=== PATIENT | male | born 1955 | race Caucasian/White ===

== ENCOUNTER 2019-11-14 08:54 | Emergency (ER) | payer MEDICARE, SELFPAY | END 2019-11-14 11:27 | disposition home or self-care (01) | PROVIDERS: Family Provider Nurse Practitioner Family | DX: S00.81XA Abrasion of other part of head, initial encounter (principal); S00.31XA Abrasion of nose, initial encounter; S60.511A Abrasion of right hand, initial encounter; W18.09XA Striking against other object with subsequent fall, initial encounter; Y92.009 Unspecified place in unspecified non-institutional (private) residence as the place of occurrence of the external cause; I25.2 Old myocardial infarction; I10 Essential (primary) hypertension; F17.210 Nicotine dependence, cigarettes, uncomplicated; Z99.81 Dependence on supplemental oxygen; Z23 Encounter for immunization ==

== ENCOUNTER 2019-11-19 15:38 | Inpatient (IN) | payer MEDICARE, SELFPAY ==
[2019-11-19] VITALS (18 sets, daily range): BP systolic 81–174; BP diastolic 57–118; PULSE 66–96; RESP 15–33; TEMP 36.5–36.9; O2SAT 95–100; BMI 20.6
--- NOTE | 2019-11-19 15:53 | ECG_ITS ---
Measurements Intervals [place] Rate: 81 P: 60 MD: 137 QRS: 103 QRSD: 101 T: 7 QT: 311 QTc: 362 SINUS RHYTHM WITH OCCASIONAL SUPRAVENTRICULAR PREMATURE COMPLEXES INDETERMINATE AXIS INFERIOR MYOCARDIAL INFARCTION , PROBABLY OLD [40+ ms Q WAVE AND/OR ST/T ABNORMALITY IN II/aVF] Compared to ECG 08/26/2016 14:40:47 Sinus tachycardia no longer present Myocardial infarct finding still present Electronically Signed On 11-20-2019 5:56:44 [employer] by Cassy Benavidez M.D. [email or web address]
--- NOTE | 2019-11-19 15:53 | XRR_ITS ---
PROCEDURE INFORMATION: Exam: XR Chest, 1 View Exam date and time: 11/19/2019 3:55 PM Age: 64 years old Clinical indication: Other: Possible sepsis; Patient HX: Smoker, HTN TECHNIQUE: Imaging protocol: XR of the chest Views: 1 view. COMPARISON: CR Chest 1 [place] [id number] 10/20/2019 5:16 AM FINDINGS: Tubes, catheters and devices: The right PICC line has been removed. Lungs: Slight decreased bilateral pulmonary opacities with residual perihilar pneumonia. Pleural space: Decreased pleural fluid collections with mild to moderate residual. Heart/Mediastinum: Unremarkable. No cardiomegaly. Bones/joints: Unremarkable. XR/XR chest 1V portable [id number] IMPRESSION: 1. The right PICC line has been removed. 2. Slight decreased bilateral pulmonary opacities with residual perihilar pneumonia. 3. Decreased pleural fluid collections with mild to moderate residual.
--- NOTE | 2019-11-19 15:58 | ED_ITS ---
Entered by Ami Parker, acting as scribe for Documented by User: Cedric Lynn MD 11/19/19 17:43 HPI - General Adult General: Chief complaint: General Medical, Adult Stated complaint: POSS SEPSIS Time Seen by Provider: 11/19/19 15:42 Source: patient and EMS Mode of arrival: EMS Limitations: no limitations History of Present Illness: HPI narrative: 64 yo male presents with low blood pressure. pt states this started 2 days ago. pt has had weakness. pt has had increased fatigue. pt has had abdomen pain. pt denies any other symptoms at this time. complaint: low blood pressure, weakness Onset (ago): day(s) (2 days ago) Radiation: abdomen Severity: moderate Pain Consistency: constant Relieving factors: none Exacerbating factors: none Associated symptoms: Reports weakness; Deny chest pain, dyspnea, headache(s), nausea, rash or vomiting Treatments prior to arrival: none Review of Systems Const: Denies: fever or chills Eyes: Denies: change in vision ENMT: Denies: throat pain or mouth pain Card: Denies: chest pain Resp: Reports: non-productive cough; Denies: shortness of breath GI: Denies: abdominal pain, nausea, vomiting or diarrhea Musc: Denies: back pain or joint pain Skin/Breast: Denies: rash Neuro: Denies: headache or behavioral changes Psych: Denies: depression Endo: Denies: excessive urination Jeffery/Lymph: Denies: easy bruising All/Imm: Denies: hives PFSH ED PFSH: Statuses (acute, chronic, etc) shown below reflect problem list status as previously entered and may not be historically accurate Medical History (Updated 11/19/19 @ 20:50 by Ministerio Jewell MD) ARDS (adult respiratory distress syndrome) (Acute) Chronic kidney disease, stage II (mild) (Acute) COPD (chronic obstructive pulmonary disease) (Acute) Deconditioned low back (Acute) Depression (Acute) Gastric perforation (Acute) History of coronary angiogram (Acute) Hypertension (Acute) Loculated pleural effusion (Acute) Malnourished (Acute) Myocardial infarction (Acute) Normocytic anemia (Acute) Peptic ulcer disease (Acute) Ventral hernia (Acute) Surgical History (Updated 11/19/19 @ 20:09 by Ministerio Jewell MD) H/O chest tube placement (Acute) S/P right coronary artery (RCA) stent placement (Acute) Family History (Updated 11/19/19 @ 20:07 by Ministerio Jewell MD) Father Liver cirrhosis Social History (Updated 11/19/19 @ 20:07 by Ministerio Jewell MD) Smoking and tobacco status: current some day smoker cigarettes Number of cigarettes per day: 1-5 Alcohol intake: never Substance/Drug Use: never Lives independently: No Housing: Assisted Living Facility Physical Exam Const: COMMON NORMALS: no apparent distress GENERAL APPEARANCE: ill appearing HENMT: COMMON NORMALS: normocephalic and external nose normal HEAD & SCALP: normocephalic NOSE: external nose normal and no nasal discharge (nasal dischage) Eye: COMMON NORMALS: PERRL PUPIL: Yes PERRL Neck/C-Spine: COMMON NORMALS: full ROM and no lymphadenopathy Chest: COMMONS NORMALS: inspection of chest normal Resp: COMMON NORMALS: normal respiratory effort and clear to auscultation bilaterally AUSCULTATION: clear to auscultation bilaterally Cardio: COMMON NORMALS: regular rate and regular rhythm RATE: regular rate RHYTHM: regular rhythm GI: COMMON NORMALS: soft to palpation PALPATION: Yes soft Extremity: COMMON NORMALS: normal to inspection, full ROM and normal capillary refill Psych: COMMON NORMALS: mental status grossly normal and cooperative Skin: COMMON NORMALS: no rashes or lesions noted GENERAL SKIN EXAM: no rashes or lesions noted Course Vital Signs: Vital signs: Vital Signs Temperature 98.4 F 11/19/19 15:43 Pulse Rate 79 11/19/19 20:54 Respiratory Rate 16 11/19/19 21:21 Blood Pressure 96/68 11/19/19 20:54 Pulse Oximetry 100 11/19/19 20:54 MDM - General Adult MDM Narrative: Medical decision making narrative: Patient presents here with hypotension along with abdominal pain. X-ray here shows no real acute findings but will wait for radiology read. Patient also is awaiting CT abdomen and pelvis. Patient's blood pressure is improving with IV fluids. Patient's care turned over to Dr. Bob at shift change. Lab Data: Labs: Lab Results 11/19/19 11/19/19 11/19/19 Range/Units 16:31 16:31 16:31 WBC 14.1 H (4.0-10.0) 10^3/ uL RBC 3.47 L (4.1-5.3) 10^6/u L Hgb 9.0 L (11.7-16.6) g/dL Hct 28.9 L (42.0-52.0) % MCV 83.3 (80-94) fL MCH 25.9 L (28.0-34.0) pg MCHC 31.1 (30.0-36.0) g/dL RDW 17.5 H (12.1-15.1) % Plt Count 500 H (130-400) 10^3/c mm MPV 8.9 (7.4-10.4) fL Neut % (Auto) 66.9 % Lymph % (Auto) 23.9 % Elliott % (Auto) 8.6 % Eos % (Auto) 0.1 % Baso % (Auto) 0.2 % Neut # (Auto) 9.4 H (1.8-7.7) 10^3/u L Lymph # (Auto) 3.4 (0.8-4.8) 10^3/u L Elliott # (Auto) 1.2 H (0.2-0.9) 10^3/u L Eos # (Auto) 0.0 (0.0-0.8) 10^3/u L Baso # (Auto) 0.0 (0.0-0.1) 10^3/u L Nucleated RBC % (a uto) 0 % Nucleated RBCs # 0.0 /100WBC Sodium 129 L (136-145) mmol/L Potassium 3.2 L (3.5-5.1) mmol/L Chloride 88 L (98-107) mmol/L Carbon Dioxide 29 (22-29) mmol/L Anion Gap 15.2 (5-19) BUN 12 (8-23) mg/dL Creatinine 0.9 (0.7-1.2) mg/dL GFR Calculation 85.0 L (90-130) mL/min Glucose 98 (74-106) mg/dL Lactic Acid 2.3 H (0.5-2.2) mmol/L Lactate (0.5-2.2) mmol/L Calcium 8.4 L (8.8-10.2) mg/Dl Total Bilirubin 0.3 (0.15-1.2) mg/dL AST 22 (0-40) U/L ALT 19 (0-41) U/L Alkaline Phosphata se 144 H (40-130) IU/L Total Protein 7.4 (6.6-8.7) g/dL Albumin 2.1 L (3.5-5.2) g/dL Globulin 5.3 H (1.3-4.6) g/dL Urine Color (Yellow) Urine Appearance (CLEAR) Urine pH (5-7) Ur Specific Gravit y (1.005-1.030) Urine Protein (Negative) Urine Glucose (UA) (Normal) Urine Ketones (Negative) Urine Occult Blood (Negative) Urine Nitrate (Negative) Urine Bilirubin (NEGATIVE) Urine Urobilinogen (Negative) mg/dL Ur Leukocyte Cassi ase (Negative) 11/19/19 11/19/19 Range/Units 17:45 19:24 WBC (4.0-10.0) 10^3/ uL RBC (4.1-5.3) 10^6/u L Hgb (11.7-16.6) g/dL Hct (42.0-52.0) % MCV (80-94) fL MCH (28.0-34.0) pg MCHC (30.0-36.0) g/dL RDW (12.1-15.1) % Plt Count (130-400) 10^3/c mm MPV (7.4-10.4) fL Neut % (Auto) % Lymph % (Auto) % Elliott % (Auto) % Eos % (Auto) % Baso % (Auto) % Neut # (Auto) (1.8-7.7) 10^3/u L Lymph # (Auto) (0.8-4.8) 10^3/u L Elliott # (Auto) (0.2-0.9) 10^3/u L Eos # (Auto) (0.0-0.8) 10^3/u L Baso # (Auto) (0.0-0.1) 10^3/u L Nucleated RBC % (a uto) % Nucleated RBCs # /100WBC Sodium (136-145) mmol/L Potassium (3.5-5.1) mmol/L Chloride (98-107) mmol/L Carbon Dioxide (22-29) mmol/L Anion Gap (5-19) BUN (8-23) mg/dL Creatinine (0.7-1.2) mg/dL GFR Calculation (90-130) mL/min Glucose (74-106) mg/dL Lactic Acid (0.5-2.2) mmol/L Lactate 1.5 (0.5-2.2) mmol/L Calcium (8.8-10.2) mg/Dl Total Bilirubin (0.15-1.2) mg/dL AST (0-40) U/L ALT (0-41) U/L Alkaline Phosphata se (40-130) IU/L Total Protein (6.6-8.7) g/dL Albumin (3.5-5.2) g/dL Globulin (1.3-4.6) g/dL Urine Color Yellow (Yellow) Urine Appearance Clear (CLEAR) Urine pH 6.5 (5-7) Ur Specific Gravit y 1.005 (1.005-1.030) Urine Protein Neg (Negative) Urine Glucose (UA) Norm (Normal) Urine Ketones Negative (Negative) Urine Occult Blood Neg (Negative) Urine Nitrate Negative (Negative) Urine Bilirubin Neg (NEGATIVE) Urine Urobilinogen Norm (Negative) mg/dL Ur Leukocyte Cassi ase Negative (Negative) EKG Data^: EKG 1: Attestation: I personally reviewed and interpreted this EKG as follows: EKG interpretation date: 11/19/19 EKG interpretation time: 16:05 Interpretation: Normal sinus rhythm heart rate [address] or T wave abnormalities QRS 101 QTc 348 Computer generated interpretation: Chest X-Ray 11/19/19 15:53 IMPRESSION: 1. The right PICC line has been removed. 2. Slight decreased bilateral pulmonary opacities with residual perihilar pneumonia. 3. Decreased pleural fluid collections with mild to moderate residual. Abdomen/Pelvis CT 11/19/19 17:36 IMPRESSION: 1. Continued unusual pattern of prominent bilateral perihilar air bronchograms with dense consolidation suggesting possible chronic pneumonia versus fibrosis with crowded air bronchograms. 2. Decreased peripheral loculated bilateral pleural fluid collections. 3. Lobulated bowel wall thickening in the gastric body and fundus suggesting possible neoplasm versus hypertrophic gastritis. 4. Prominent right anterior abdominal wall hernia containing non incarcerated loops of bowel. Previously the the hernia was larger and midline. Probable interval surgical repair with recurrence/residual right-sided herniation. Radiation Dose CTDIVOL = (mGy): DLP = 755.29 (mGy-cm) Discharge Plan Discharge Patient Disposition: Admitted As Inpatient Admit Provider: Ministerio Jewell Condition: Stable Referrals: Martin Navarro, IMPORT/EXPORT ADMINISTRATOR [Family Provider] - Coding Level of Care Code ED Addiction Professional for Chg Fwd Exam Problem Focused Documented by User: Magnus Bob DO 11/19/19 21:54 HPI - General Adult General: Chief complaint: General Medical, Adult Stated complaint: POSS SEPSIS Time Seen by Provider: 11/19/19 15:42 PFSH ED PFSH: Statuses (acute, chronic, etc) shown below reflect problem list status as previously entered and may not be historically accurate Medical History (Updated 11/19/19 @ 20:50 by Ministerio Jewell MD) ARDS (adult respiratory distress syndrome) (Acute) Chronic kidney disease, stage II (mild) (Acute) COPD (chronic obstructive pulmonary disease) (Acute) Deconditioned low back (Acute) Depression (Acute) Gastric perforation (Acute) History of coronary angiogram (Acute) Hypertension (Acute) Loculated pleural effusion (Acute) Malnourished (Acute) Myocardial infarction (Acute) Normocytic anemia (Acute) Peptic ulcer disease (Acute) Ventral hernia (Acute) Surgical History (Updated 11/19/19 @ 20:09 by Ministerio Jewell MD) H/O chest tube placement (Acute) S/P right coronary artery (RCA) stent placement (Acute) Family History (Updated 11/19/19 @ 20:07 by Ministerio Jewell MD) Father Liver cirrhosis Social History (Updated 11/19/19 @ 20:07 by Ministerio Jewell MD) Smoking and tobacco status: current some day smoker cigarettes Number of cigarettes per day: 1-5 Alcohol intake: never Substance/Drug Use: never Lives independently: No Housing: Assisted Living Facility Course Vital Signs: Vital signs: Vital Signs Temperature 98.4 F 11/19/19 15:43 Pulse Rate 79 11/19/19 20:54 Respiratory Rate 16 11/19/19 21:21 Blood Pressure 96/68 11/19/19 20:54 Pulse Oximetry 100 11/19/19 20:54 MDM - General Adult MDM Narrative: Medical decision making narrative: 64-year-old male patient received in checkout from Dr. Lynn. He presents with hypotension. He complains of belly pain, which is chronic. His chest x-ray shows bilateral infiltrates that are chronic. [facility] stay here in October for pneumonia with parapneumonic effusion. His blood pressure is currently 100/66. He looks improved after fluid bolus. His white blood cell count is elevated. His hemoglobin is 9. There is no left shift to his white count. CT scan of the belly is performed and shows gastric wall thickening versus neoplasm that has been present on prior exams. Interval hernia repair with repeat hernia without strangulation or obstruction. It is difficult to tell with this patient, what are chronic conditions, and what may be more acute requiring intervention in the hospital. Lab Data: Labs: Lab Results 11/19/19 11/19/19 11/19/19 Range/Units 16:31 16:31 16:31 WBC 14.1 H (4.0-10.0) 10^3/ uL RBC 3.47 L (4.1-5.3) 10^6/u L Hgb 9.0 L (11.7-16.6) g/dL Hct 28.9 L (42.0-52.0) % MCV 83.3 (80-94) fL MCH 25.9 L (28.0-34.0) pg MCHC 31.1 (30.0-36.0) g/dL RDW 17.5 H (12.1-15.1) % Plt Count 500 H (130-400) 10^3/c mm MPV 8.9 (7.4-10.4) fL Neut % (Auto) 66.9 % Lymph % (Auto) 23.9 % Elliott % (Auto) 8.6 % Eos % (Auto) 0.1 % Baso % (Auto) 0.2 % Neut # (Auto) 9.4 H (1.8-7.7) 10^3/u L Lymph # (Auto) 3.4 (0.8-4.8) 10^3/u L Elliott # (Auto) 1.2 H (0.2-0.9) 10^3/u L Eos # (Auto) 0.0 (0.0-0.8) 10^3/u L Baso # (Auto) 0.0 (0.0-0.1) 10^3/u L Nucleated RBC % (a uto) 0 % Nucleated RBCs # 0.0 /100WBC Sodium 129 L (136-145) mmol/L Potassium 3.2 L (3.5-5.1) mmol/L Chloride 88 L (98-107) mmol/L Carbon Dioxide 29 (22-29) mmol/L Anion Gap 15.2 (5-19) BUN 12 (8-23) mg/dL Creatinine 0.9 (0.7-1.2) mg/dL GFR Calculation 85.0 L (90-130) mL/min Glucose 98 (74-106) mg/dL Lactic Acid 2.3 H (0.5-2.2) mmol/L Lactate (0.5-2.2) mmol/L Calcium 8.4 L (8.8-10.2) mg/Dl Total Bilirubin 0.3 (0.15-1.2) mg/dL AST 22 (0-40) U/L ALT 19 (0-41) U/L Alkaline Phosphata se 144 H (40-130) IU/L Total Protein 7.4 (6.6-8.7) g/dL Albumin 2.1 L (3.5-5.2) g/dL Globulin 5.3 H (1.3-4.6) g/dL Urine Color (Yellow) Urine Appearance (CLEAR) Urine pH (5-7) Ur Specific Gravit y (1.005-1.030) Urine Protein (Negative) Urine Glucose (UA) (Normal) Urine Ketones (Negative) Urine Occult Blood (Negative) Urine Nitrate (Negative) Urine Bilirubin (NEGATIVE) Urine Urobilinogen (Negative) mg/dL Ur Leukocyte Cassi ase (Negative) 01/05/20 01/05/20 Range/Units 17:45 19:24 WBC (4.0-10.0) 10^3/ uL RBC (4.1-5.3) 10^6/u L Hgb (11.7-16.6) g/dL Hct (42.0-52.0) % MCV (80-94) fL MCH (28.0-34.0) pg MCHC (30.0-36.0) g/dL RDW (12.1-15.1) % Plt Count (130-400) 10^3/c mm MPV (7.4-10.4) fL Neut % (Auto) % Lymph % (Auto) % Elliott % (Auto) % Eos % (Auto) % Baso % (Auto) % Neut # (Auto) (1.8-7.7) 10^3/u L Lymph # (Auto) (0.8-4.8) 10^3/u L Elliott # (Auto) (0.2-0.9) 10^3/u L Eos # (Auto) (0.0-0.8) 10^3/u L Baso # (Auto) (0.0-0.1) 10^3/u L Nucleated RBC % (a uto) % Nucleated RBCs # /100WBC Sodium (136-145) mmol/L Potassium (3.5-5.1) mmol/L Chloride (98-107) mmol/L Carbon Dioxide (22-29) mmol/L Anion Gap (5-19) BUN (8-23) mg/dL Creatinine (0.7-1.2) mg/dL GFR Calculation (90-130) mL/min Glucose (74-106) mg/dL Lactic Acid (0.5-2.2) mmol/L Lactate 1.5 (0.5-2.2) mmol/L Calcium (8.8-10.2) mg/Dl Total Bilirubin (0.15-1.2) mg/dL AST (0-40) U/L ALT (0-41) U/L Alkaline Phosphata se (40-130) IU/L Total Protein (6.6-8.7) g/dL Albumin (3.5-5.2) g/dL Globulin (1.3-4.6) g/dL Urine Color Yellow (Yellow) Urine Appearance Clear (CLEAR) Urine pH 6.5 (5-7) Ur Specific Gravit y 1.005 (1.005-1.030) Urine Protein Neg (Negative) Urine Glucose (UA) Norm (Normal) Urine Ketones Negative (Negative) Urine Occult Blood Neg (Negative) Urine Nitrate Negative (Negative) Urine Bilirubin Neg (NEGATIVE) Urine Urobilinogen Norm (Negative) mg/dL Ur Leukocyte Cassi ase Negative (Negative) EKG Data^: EKG 1: Computer generated interpretation: Chest X-Ray 11/19/19 15:53 IMPRESSION: 1. The right PICC line has been removed. 2. Slight decreased bilateral pulmonary opacities with residual perihilar pneumonia. 3. Decreased pleural fluid collections with mild to moderate residual. Abdomen/Pelvis CT 11/19/19 17:36 IMPRESSION: 1. Continued unusual pattern of prominent bilateral perihilar air bronchograms with dense consolidation suggesting possible chronic pneumonia versus fibrosis with crowded air bronchograms. 2. Decreased peripheral loculated bilateral pleural fluid collections. 3. Lobulated bowel wall thickening in the gastric body and fundus suggesting possible neoplasm versus hypertrophic gastritis. 4. Prominent right anterior abdominal wall hernia containing non incarcerated loops of bowel. Previously the the hernia was larger and midline. Probable interval surgical repair with recurrence/residual right-sided herniation. Radiation Dose CTDIVOL = (mGy): DLP = 755.29 (mGy-cm) Discharge Plan Discharge Patient Disposition: Admitted As Inpatient Admit Provider: Ministerio Jewell Condition: Stable Referrals: Martin Navarro FNP [Family Provider] - Coding Level of Care Code ED Addiction Professional for Chg Fwd Exam Problem Focused The documentation recorded by the Keith lopez Bridget Annette, accurately reflects the service I personally performed and the decisions made by Leah lopez Korby, MD Nov 19, 2019 15:38
--- NOTE | 2019-11-19 16:04 | PC.NURSE ---
pt asked for pain meds
--- NOTE | 2019-11-19 16:24 | PC.NURSE ---
Skin: [place],Warm,Dry
[2019-11-19 16:48] LABS: Basophils % 0.2 %; Eosinophils % 0.1 %; Hematocrit 28.9 % (42.0-52.0); Lymphocytes # 3.4 10^3/uL (0.8-4.8); Lymphocytes % 23.9 %; Mean Corpuscular HGB Conc 31.1 g/dL (30.0-36.0); Mean Corpuscular Hemoglobin 25.9 pg (28.0-34.0); Mean Corpuscular Volume 83.3 fL (80-94); Mean Platelet Volume 8.9 fL (7.4-10.4); Monocytes # 1.2 10^3/uL (0.2-0.9); Monocytes % 8.6 %; Neutrophils # 9.4 10^3/uL (1.8-7.7); Neutrophils % 66.9 %; Nucleated Red Blood Cells % 0 %; Platelet Count 500 10^3/cmm (130-400); Red Blood Count 3.47 10^6/uL (4.1-5.3); Red Cell Distribution Width 17.5 % (12.1-15.1); White Blood Count 14.1 10^3/uL (4.0-10.0)
[2019-11-19 17:03] LABS: Alanine Aminotransferase 19 U/L (0-41); Albumin Level 2.1 g/dL (3.5-5.2); Alkaline Phosphatase 144 IU/L (40-130); Anion Gap 15.2 (5-19); Aspartate Amino Transferase 22 U/L (0-40); Blood Urea Nitrogen 12 mg/dL (8-23); Calcium 8.4 mg/Dl (8.8-10.2); Carbon Dioxide 29 mmol/L (22-29); Chloride 88 mmol/L (98-107); Globulin 5.3 g/dL (1.3-4.6); Glucose 98 mg/dL (74-106); Potassium 3.2 mmol/L (3.5-5.1); Sodium 129 mmol/L (136-145); Total Bilirubin 0.3 mg/dL (0.15-1.2); Total Protein 7.4 g/dL (6.6-8.7)
[2019-11-19 17:04] LABS: Lactic Sepsis W/Reflex 2.3 mmol/L (0.5-2.2)
[2019-11-19 17:18] LABS: Slide Review Slide Review Perform
--- NOTE | 2019-11-19 17:36 | CTR_ITS ---
PROCEDURE INFORMATION: Exam: CT Abdomen And Pelvis With Contrast Exam date and time: 11/19/2019 5:39 PM Age: 64 years old Clinical indication: Abdominal pain; Generalized; Prior surgery; Surgery type: Hernia TECHNIQUE: Imaging protocol: Computed tomography of the abdomen and pelvis with intravenous contrast. Total DLP: 755.29 mGy-cm Radiation optimization: All CT scans at this facility use at least one of these dose optimization techniques: automated exposure control; mA and/or kV adjustment per patient size (includes targeted exams where dose is matched to clinical indication); or iterative reconstruction. Contrast material: OMNI 300; Contrast volume: 95 ml; Contrast route: LT HAND; COMPARISON: CT Abdomen/Pelvis w IV* [id number] 09/30/2019 10:34 AM FINDINGS: Lungs: Continued unusual pattern of prominent bilateral perihilar air bronchograms with dense consolidation suggesting possible chronic pneumonia versus fibrosis with crowded air bronchograms. Pleural space: Decreased loculated bilateral pleural fluid collections. Heart: Borderline cardiomegaly. Liver: Normal. No mass. Gallbladder and bile ducts: Normal. No calcified stones. No ductal dilation. Pancreas: Normal. No ductal dilation. Spleen: Normal. No splenomegaly. Adrenals: Normal. No mass. Kidneys and ureters: Normal. No hydronephrosis. Stomach and bowel: Lobulated bowel wall thickening in the gastric body and fundus suggesting possible neoplasm versus hypertrophic gastritis. Prominent right anterior abdominal wall hernia containing non incarcerated loops of bowel. Previously the the hernia was larger and midline. Probable interval surgical repair with recurrence/residual right-sided herniation. Appendix: No evidence of appendicitis. Intraperitoneal space: Unremarkable. No free air. No significant fluid collection. Vasculature: Stable severe calcified coronary artery disease. Lymph nodes: Unremarkable. No enlarged lymph nodes. Bladder: Unremarkable as visualized. Reproductive: Unremarkable as visualized. Bones/joints: Unremarkable. No acute fracture. Soft tissues: See Stomach And Bowel Finding. CT/CT abdomen pelvis w con* [id number] IMPRESSION: 1. Continued unusual pattern of prominent bilateral perihilar air bronchograms with dense consolidation suggesting possible chronic pneumonia versus fibrosis with crowded air bronchograms. 2. Decreased peripheral loculated bilateral pleural fluid collections. 3. Lobulated bowel wall thickening in the gastric body and fundus suggesting possible neoplasm versus hypertrophic gastritis. 4. Prominent right anterior abdominal wall hernia containing non incarcerated loops of bowel. Previously the the hernia was larger and midline. Probable interval surgical repair with recurrence/residual right-sided herniation. Radiation Dose CTDIVOL = (mGy): DLP = 755.29 (mGy-cm)
[2019-11-19] MEDS: morphine 4 mg/mL SDV 1 mL 2 MG IVP (18:03)
[2019-11-19] MEDS: iohexol 300 mg/mL 100 mL Btl IV (18:12)
--- NOTE | 2019-11-19 18:21 | PC.NURSE ---
AGREE WITH ASSESSMENT
[2019-11-19 18:23] LABS: Reflex Lactate Order Y
[2019-11-19 18:26] LABS: Add Urine Microscopic? NO
[2019-11-19 18:31] LABS: Add Urine Culture? No; Bilirubin Urine Neg (NEGATIVE); Blood Urine Neg (Negative); Glucose Urine UA Norm (Normal); Ketones Urine Negative (Negative); Leukocyte Esterase Urine Negative (Negative); Nitrate Urine Negative (Negative); Protein Urine Neg (Negative); Specific Gravity, Urine 1.005 (1.005-1.030); Urine Appearance Clear (CLEAR); Urine Color Yellow (Yellow); Urobilinogen Urine Norm (Negative); pH Urine 6.5 (5-7)
[2019-11-19] MEDS: sodium chlor 0.9% + KCl 20 mEq 20 MEQ/1,000 ML BAG 200 MEQ (19:23)
[2019-11-19 19:45] LABS: Lactate (Lactic Acid level) 1.5 mmol/L (0.5-2.2)
--- NOTE | 2019-11-19 20:02 | PM.HP ---
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 Gastric biopsy showed fungal growth at that time. After that he developed ARDS with bilateral pneumonia he was never intubated, he was managed with antibiotics, Dr. Alba was consulted for ARDS management as well, he developed wound dehiscence underwent hernia repair with mesh placement, on 10/17 he underwent chest tube placement for loculated effusion with drainage of 700 mL of exudative fluid. Chest tube was inadvertently dislodged. He was transferred to [facility] long-term acute care for management of hypoxic respiratory failure, suspected hematological neoplastic process i.e. B-cell lymphoma. From long-term acute care he was discharged back to [facility]. At [facility] he started experiencing lethargy, fatigue and weakness, his blood pressure was consistently between 80 to 85 mmHg at the facility, he denies any fever, chills, headache, chest pain, constipation but he is endorsing relatively darker stool but he has not noticed any fresh red blood per rectum, is able to void without any dysuria, he is having nonproductive cough on and off, he ambulates using a walker at the facility, because of his chronic conditions and complicated course in the hospital he was sent to the ER for further evaluation. In the ER systolic blood pressure was at 80, he was given fluids by ER physician, his systolic blood pressure was 95 when I examined him, he looked very dehydrated, with hyponatremia, hypokalemia, met sepsis criteria with leukocytosis 14, lactic acid 2.2, hypotension, CT abdomen is still showing gastric wall thickening, mild improvement in bilateral infiltrates but because of consistent hypotension despite use of fluids we will go ahead and treat him for hospital-acquired pneumonia Review of Systems Const: Reports: body aches, change in appetite, change in weight, fatigue and malaise; Denies: fever, chills or diaphoresis Eyes: Denies: change in vision ENMT: Denies: throat pain, painful swallowing or swelling of lips/tongue Card: Denies: chest pain, palpitations or edema Resp: Reports: non-productive cough and chest congestion; Denies: shortness of breath, wheezing, pain on inspiration or coughing up blood GI: Reports: abdominal pain, nausea and bloating; Denies: vomiting, vomiting blood, coffee grounds in vomit, difficulty swallowing, feeling full early, constipation or fecal incontinence : Denies: flank pain, difficulty urinating or urinary frequency Musc: Reports: joint pain and muscle cramps; Denies: neck pain or back pain Neuro: Denies: headache or dizziness Psych: Reports: depression and memory loss Endo: Denies: excessive urination or excessive thirst Jeffery/Lymph: Reports: enlarged lymph nodes All/Imm: Denies: hives Medications/Allergies Home Medications Medication Instructions Recorded Confirmed Last Taken Type Unable to Assess 11/19/19 11/19/19 Unknown History Allergies Allergy/AdvReac Type Severity Reaction Status Date / Time propoxyphene Allergy Unknown Verified 11/19/19 15:48 PFSH Acute PFSH: Statuses (acute, chronic, etc) shown below reflect problem list status as previously entered and may not be historically accurate Medical History (Updated 11/19/19 @ 20:50 by Ministerio Jewell MD) ARDS (adult respiratory distress syndrome) (Acute) Chronic kidney disease, stage II (mild) (Acute) COPD (chronic obstructive pulmonary disease) (Acute) Deconditioned low back (Acute) Depression (Acute) Gastric perforation (Acute) History of coronary angiogram (Acute) Hypertension (Acute) Loculated pleural effusion (Acute) Malnourished (Acute) Myocardial infarction (Acute) Normocytic anemia (Acute) Peptic ulcer disease (Acute) Ventral hernia (Acute) Surgical History (Updated 11/19/19 @ 20:09 by Ministerio Jewell MD) H/O chest tube placement (Acute) S/P right coronary artery (RCA) stent placement (Acute) Family History (Updated 11/19/19 @ 20:07 by Ministerio Jewell MD) Father Liver cirrhosis Social History (Updated 11/19/19 @ 20:07 by Ministerio Jewell MD) Smoking and tobacco status: current some day smoker cigarettes Number of cigarettes per day: 1-5 Alcohol intake: never Substance/Drug Use: never Lives independently: No Housing: Assisted Living Facility Vitals/I&O/Wt Last Vital Signs Temp 98.4 F 11/19/19 15:43 Pulse 77 11/19/19 19:00 Resp 16 11/19/19 19:00 BP 104/65 11/19/19 19:00 Pulse Ox 100 11/19/19 19:00 Weight last 48 hrs Weight 67.132 kg Physical Exam Narrative: EXAM NARRATIVE: Appears stated age, Seems to be very dehydrated and cachectic He was alert oriented x3, GCS 15, no local deficit, neuroLogical exam was unremarkable Systolic blood pressure was 111, heart rate 70, saturating well on 2 L S1-S2 no murmur appreciated no signs of JVD or heart failure no peripheral edema Abdomen has mid laparotomy scar well-healed, mild tenderness on deep palpation, very weak abdominal wall muscles, bowel sounds sluggish, Lung auscultation shows mild rhonchi at the bases otherwise clear breath sounds without adventitious sounds or wheezing Skin shows dehydration, no bruising or petechiae Extremities without any signs of ischemia gangrene or edema Data Micro: Micro: Microbiology 11/19/19 16:22 Blood Culture - Pr eliminary Blood SPECIMEN [facility] 11/19/19 16:31 Blood Culture - Pr eliminary Blood SPECIMEN [facility] A&P Assessment and plan (1) Hospital-acquired pneumonia: Status: Acute Code(s): J18.9 - Pneumonia, unspecified organism; Y95 - Nosocomial condition (2) Septic shock: Status: Acute Code(s): A41.9 - Sepsis, unspecified organism; R65.21 - Severe sepsis with septic shock (3) Malnourished: Status: Acute Code(s): E46 - Unspecified protein-calorie malnutrition (4) Sepsis: Status: Acute Code(s): A41.9 - Sepsis, unspecified organism (5) Sarcopenia: Status: Acute Code(s): M62.84 - Sarcopenia Additional A&P Information Additional A&P Information: Septic shock secondary to hospital-acquired pneumonia Sepsis criteria met with leukocytosis, hypotension high lactic acid Patient seems extremely dehydrated, denies dysuria, CT scan is still showing bilateral infiltrates after 4 to 6 weeks of previous or ARDS event I will treat him with vancomycin, Zosyn and Levaquin for now Sputum and blood cultures Dehydration secondary to poor p.o. intake Patient has anorexia and because of his abdominal pain he is not eating well He is requiring oxycodone for his abdominal pain on daily basis Denies constipation Chronic normocytic anemia Last time his hemoglobin was 10, on this visit his hemoglobin is 9, he is endorsing dark-colored stool We will monitor his hemoglobin level Because of his history of VT and coronary artery disease target range would be around 8 Deconditioning and Sarcopenia with malnourishment Hyponatremic, hypokalemic and hypochloremic His clinical progression and recovery will be very slow because of his poor p.o. intake, loss of muscle mass and inadequate p.o. intake Chronic hyponatremia: Target sodium correction only 6 mEq in 24 hours, currently requiring fluids because of hypotension Will check sodium level in 4 hours On previous admission his sodium level fluctuated between 128-132 I believe this is secondary to his chronic dehydration, anticipating improvement with normal saline, His fatigue and lethargy is multifactorial because of the reasons mentioned above Thrombocytosis: He had provisional diagnosis of B-cell lymphoma after gastric biopsy, however this thrombocytosis could be secondary to iron deficiency anemia, active infection and dehydration Abdominal pain: Patient has gastric wall thickening and previously he had 2 biopsies done He requires opiates on daily basis, This pain is not new in intensity is 3/10 no active constipation He is able to tolerate diet DVT prophylaxis: Lovenox GI prophylaxis: Protonix Goals of care: Full code Attestations Medical Necessity Statement*: Anticipating stay to cross more than 2 midnights Time Spent in Patient Care: (>than 50% of time spent in counselling and/or direct pt care on unit). 50 Coding Level of Care Code Acute Ecmo Specialist for [facility] Fwd Diagnoses Hospital-acquired pneumonia J18.9; Y95 Septic shock A41.9; R65.21 Malnourished E46 Sepsis A41.9 Sarcopenia M62.84
--- NOTE | 2019-11-19 20:06 | PC.NURSE ---
Updated NH on status of patient. Spoke to Bill.
[2019-11-19] MEDS: levofloxacin-dextrose 5 % 750 MG/150 ML PREMIX 150 MG IV (20:23)
[2019-11-19] MEDS: sodium chlor 0.9% + KCl 20 mEq 20 MEQ/1,000 ML BAG 200 MEQ IV (20:29)
[2019-11-19] MEDS: morphine 4 mg/mL SDV 1 mL IVP (21:21)
[2019-11-20] VITALS (13 sets, daily range): BP systolic 93–118; BP diastolic 61–82; PULSE 63–85; RESP 18–32; TEMP 36.4–37.1; O2SAT 27–100
[2019-11-20] MEDS: piperacillin-tazobactam 3.375 GM in sodium chloride 0.9% (plus) 50 ML IV ×4 (00:30→23:30)
[2019-11-20] MEDS: sodium chlor 0.9% + KCl 20 mEq 20 MEQ/1,000 ML BAG 200 MEQ IV ×3 (00:31→11:27)
[2019-11-20] MEDS: enoxaparin 40 mg/0.4 mL Syringe SUBCUT ×2 (00:31→21:49)
[2019-11-20 01:08] LABS: Sodium 131 mmol/L (136-145)
[2019-11-20 05:39] LABS: Basophils % 0.4 %; Eosinophils # 0.1 10^3/uL (0.0-0.8); Eosinophils % 0.7 %; Hematocrit 28.5 % (42.0-52.0); Hemoglobin 8.8 g/dL (11.7-16.6); Lymphocytes # 1.8 10^3/uL (0.8-4.8); Lymphocytes % 17.2 %; Mean Corpuscular HGB Conc 30.9 g/dL (30.0-36.0); Mean Corpuscular Hemoglobin 25.8 pg (28.0-34.0); Mean Corpuscular Volume 83.6 fL (80-94); Mean Platelet Volume 9.3 fL (7.4-10.4); Monocytes # 0.7 10^3/uL (0.2-0.9); Monocytes % 6.9 %; Neutrophils # 7.6 10^3/uL (1.8-7.7); Neutrophils % 74.4 %; Nucleated Red Blood Cells % 0 %; Platelet Count 466 10^3/cmm (130-400); Red Blood Count 3.41 10^6/uL (4.1-5.3); Red Cell Distribution Width 17.4 % (12.1-15.1); White Blood Count 10.2 10^3/uL (4.0-10.0)
[2019-11-20 06:00] LABS: Anion Gap 11.4 (5-19); Blood Urea Nitrogen 9 mg/dL (8-23); Calcium 8.3 mg/Dl (8.8-10.2); Carbon Dioxide 29 mmol/L (22-29); Chloride 97 mmol/L (98-107); Glucose 83 mg/dL (74-106); Potassium 3.4 mmol/L (3.5-5.1); Sodium 134 mmol/L (136-145)
[2019-11-20 06:16] LABS: ABG PCO2 39.3 mmHg (35-45); ABG PH Result 7.48 (7.35-7.45); Arterial Blood Gas Hematocrit 25.3 % (42-52); Base Excess ABG 5.1 mmol/L (-2.0-2.0); Blood Gas Sample Site Brachial, right; Blood Gas Sample Type Arterial; HCO3 ABG 29.1 mmol/L (22-26); PO2 ABG 82.4 mmHg (80.0-100.0)
--- NOTE | 2019-11-20 07:00 | PC.NURSE ---
Report received from nurse Ayala. Patient resting in bed. SR noted to telemetry. Denies pain at present time.
[2019-11-20 07:18] LABS: Slide Review Slide Review Perform
[2019-11-20] MEDS: vancomycin 750 MG in sodium chloride 0.9% 250 ML 250 MG IV ×2 (09:10→21:49)
[2019-11-20] MEDS: risperiDONE 0.25 mg Tablet PO (09:11)
[2019-11-20] MEDS: pantoprazole DR 40 mg Tablet PO (09:11)
--- NOTE | 2019-11-20 11:31 | PM.PN ---
Subjective Subjective: Interval history: Chart reviewed, patient known to me from previous admission, morning labs noted. Patient seen and examined, flat affect, complains of feeling cold and requesting additional linen. Requesting pain medication as well due to some abdominal discomfort. Blood pressure has been low-normal for most of the day. Despite frequent encouragement by nursing staff has declined hydration with water and insisted on drinking Coke instead. Medications: Reviewed: Yes Medication Review Details: Active Medications Generic Name Dose Route Start Last Admin Trade Name Mark PRN Reason Stop Dose Admin Enoxaparin Sodium 40 mg 11/19/19 22:32 11/20/19 00:31 Lovenox SUBCUT 40 mg Q24H DAVID Administration Potassium Chloride /Sodium Chloride 20 meq in 1,000 m ls @ 200 mls/hr 11/19/19 19:30 11/20/19 11:27 Sodium Chlor 0.9 % + Kcl 20 Meq IV 200 mls/hr .Q5H DAVID Administration Vancomycin HCl 750 mg/ Sodium 250 mls @ 250 mls /hr 11/20/19 09:00 11/20/19 09:10 Chloride IV 250 mls/hr BID DAVID Administration Protocol Norepinephrine Bit artrate 4 mg 254 mls @ 0 mls/h r 11/20/19 05:45 / Dextrose IV .Q0M DAVID Protocol Per Protocol Piperacillin Sod/T azobactam 50 mls @ 12.5 mls /hr 11/20/19 15:00 Sod 3.375 gm/ So dium Chloride IV Q8H DAVID Protocol Levofloxacin/Dextr ose 750 mg in 150 mls @ 150 mls/hr 11/20/19 11:30 Levaquin-D5w IV Q24H DAVID Protocol Pantoprazole Sodiu m 40 mg 11/20/19 09:00 11/20/19 09:11 Protonix PO 40 mg DAILY DAVID Administration Risperidone 0.25 mg 11/20/19 09:00 11/20/19 09:11 Risperdal PO 0.25 mg DAILY DAVID Administration propoxyphene Allergy (Verified 11/19/19 15:48) Unknown Vitals/I&O/Wt Last Vital Signs Temp 97.6 F 11/20/19 07:59 Pulse 70 11/20/19 07:59 Resp 22 H 11/20/19 07:59 BP 93/65 11/20/19 07:59 Pulse Ox 100 11/20/19 07:59 11/19/19 11/20/19 11/20/19 22:59 06:59 14:59 Intake Total 3656.667 / 5670.627 1240 / 1240 Output Total 1300 / 1300 550 / 550 Balance 2356.667 / 4370.627 690 / 690 Weight last 48 hrs Weight 67.132 kg Physical Exam Const: COMMON NORMALS: no apparent distress, oriented x3 and alert GENERAL APPEARANCE: cooperative and frail appearing NUTRITIONAL APPEARANCE: thin ORIENTATION/CONSCIOUSNESS: Yes awake HENMT: COMMON NORMALS: normocephalic, head/scalp atraumatic and hearing grossly normal bilaterally HEAD & SCALP: normocephalic and atraumatic Eye: COMMON NORMALS: PERRL, EOMs intact bilaterally, conjunctivae normal and no scleral icterus CONJUNCTIVA: Yes conjunctivae normal PUPIL: Yes PERRL Resp: COMMON NORMALS: normal respiratory effort, no retractions, no use of accessory muscles and clear to auscultation bilaterally AUSCULTATION: clear to auscultation bilaterally Cardio: COMMON NORMALS: regular rate, regular rhythm, S1 normal heart sound, S2 normal heart sound and no murmurs RATE: regular rate RHYTHM: regular rhythm HEART SOUNDS: S1 normal and S2 normal OTHER: Low normal blood pressure GI: COMMON NORMALS: normal to inspection, nondistended, normoactive bowel sounds INSPECTION: Yes other (scar from recent ventral hernia repair) PALPATION: Yes tender (Vague diffuse abdominal tenderness) Extremity: COMMON NORMALS: normal to inspection Neuro: COMMON NORMALS: oriented x3 SENSORIUM/ORIENTATION: Yes alert Psych: MOOD & AFFECT: Yes flat affect Skin: COMMON NORMALS: no rashes or lesions noted GENERAL SKIN EXAM: no rashes or lesions noted Data Micro: Micro: Microbiology 11/19/19 16:22 Blood Culture - Pr eliminary Blood SPECIMEN [facility] 11/19/19 16:31 Blood Culture - Pr eliminary Blood SPECIMEN [facility] A&P Assessment and plan (1) Sepsis: Sepsis as evidenced by hypotension, leukocytosis, lactic acidosis -Suspected etiology is hospital-acquired pneumonia given continued evidence of bilateral pleural infiltrates; has history of loculated effusion that required chest tube placement and thoracentesis -Low normal blood pressure currently, pressor support as needed to maintain MAP above 65 -Decreasing leukocytosis; afebrile -Continue to monitor vital signs closely -Supplemental oxygen as needed, not oxygen dependent at baseline -Continue empiric antibiotics; de-escalate based on clinical improvement -Follow-up sputum and blood cultures Status: Acute Qualifiers: Sepsis acute organ dysfunction status: without acute organ dysfunction Sepsis type: sepsis due to unspecified organism Qualified Code(s): A41.9 - Sepsis, unspecified organism Code(s): A41.9 - Sepsis, unspecified organism (2) Hospital-acquired pneumonia: -Has history of recent prolonged and very complicated hospitalization including development of ARDS, loculated effusion requiring drainage and chest tube placement and removal, BiPAP support, ICU admission -Continued evidence of bilateral pleural infiltrates on imaging -Continue empiric antibiotics, close monitoring of respiratory status, supplemental oxygen as needed Status: Acute Code(s): J18.9 - Pneumonia, unspecified organism; Y95 - Nosocomial condition (3) Dehydration: -Appears quite dehydrated clinically, poor oral intake likely secondary to persistent abdominal pain -On gentle IV fluid hydration; encourage oral hydration which patient has been reluctant to do so far -[place] diet Status: Acute Code(s): E86.0 - Dehydration (4) Hyponatremia: -Has history of chronic hyponatremia with baseline sodium in the low 130s -Current sodium appears to be his baseline Status: Acute Code(s): E87.1 - Hypo-osmolality and hyponatremia (5) Gastric wall thickening: -Has known history of gastric wall thickening, seen on repeat imaging with radiologist reporting neoplasm versus hypertrophic gastritis -Had recent gastric biopsy done showing fungal overgrowth; suspicion for B-cell lymphoma -has known hx of PUD Status: Acute Code(s): K31.89 - Other diseases of stomach and duodenum Additional A&P Information Additional A&P Information: -Chronic normocytic anemia; baseline Hg 9-10 -Deconditioning and sarcopenia; had been at an LTAC in [place] and most recently has been at [facility]. Strict fall precautions; Assist with ambulation as needed -Chronic thrombocytosis; which is likely multifactorial given possibility of B-cell lymphoma, acute infection. Baseline platlet count 600s -Oxygen dependent COPD, 2 L baseline requirement -History of CAD status post RCA stenting -Chronic smoker -History of chronic combined systolic and diastolic CHF, no acute exacerbation. Echo (09/2019): EF=55%, G1DD, no RWMA, mild TR -hx of recent ventral hernia repair with mesh -Depression, anxiety -GI ppx with PPI -DVT ppx with Lovenox -Dispo: return to [facility] -Code status: FULL code Attestations Medical Necessity Statement*: Patient requires continued hospitalization for management of hospital-acquired pneumonia currently on broad-spectrum IV antibiotics, dehydration on gentle IV fluid hydration. Coding Level of Care Code Acute Records Associate for [facility] Fwd Diagnoses Sepsis A41.9 Sepsis acute organ dysfunction status: without acute organ dysfunction Sepsis type: sepsis due to unspecified organism Hospital-acquired pneumonia J18.9; Y95 Dehydration E86.0 Hyponatremia E87.1 Gastric wall thickening K31.89
--- NOTE | 2019-11-20 12:34 | PC.NURSE ---
Dr. Norris came to bedside to round. Instructions to decrease fluids to 100ml/hour.
[2019-11-20] MEDS: TRAMadol 50 mg Tablet PO (14:09)
--- NOTE | 2019-11-20 15:13 | PC.NURSE ---
Patient has consumed 6 coca saran so far this shift. Reminded patient importance of water intake and following diet orders as prescribed.
[2019-11-20] MEDS: HYDROcodone-acetaminophen 5-325 mg Tablet 1 TAB PO ×2 (15:20→20:06)
[2019-11-20] MEDS: levofloxacin-dextrose 5 % 750 MG/150 ML PREMIX 150 MG IV (20:05)
[2019-11-20] MEDS: sodium chlor 0.9% + KCl 20 mEq 20 MEQ/1,000 ML BAG 100 MEQ IV (20:05)
--- NOTE | 2019-11-20 23:46 | PM.EVENT ---
Event Note Event Note: Patient has remained stable throughout the day. He is not currently on Levophed. It looks like it was ordered this morning but never had to be started. Current vital signs show a pulse of 87, blood pressure 96/65 and respirations 35 with oxygen saturation 97% on 2 L by nasal cannula. Patient is being transferred to medical floor. Transfer orders completed. I did review his home medications and started a couple of them back. Home medication list needs to be further reviewed for need to restart some other medicines. Currently metoprolol and Plavix remain held due to soft blood pressures and lower but stable hemoglobin. He is on Lovenox.
--- NOTE | 2019-11-20 23:50 | PC.NURSE ---
transfer orders to move to [facility], report called to ROGE Prajapati. pt transferring via wheelchair.
[2019-11-21] VITALS (8 sets, daily range): BP systolic 94–111; BP diastolic 64–76; PULSE 74–87; RESP 16–20; TEMP 36.4–36.9; O2SAT 93–99
[2019-11-21 05:33] LABS: Basophils # 0.1 10^3/uL (0.0-0.1); Basophils % 0.5 %; Eosinophils % 0.4 %; Hematocrit 27.2 % (42.0-52.0); Hemoglobin 8.3 g/dL (11.7-16.6); Lymphocytes % 21.7 %; Mean Corpuscular HGB Conc 30.5 g/dL (30.0-36.0); Mean Corpuscular Volume 85.3 fL (80-94); Mean Platelet Volume 9.4 fL (7.4-10.4); Monocytes # 0.6 10^3/uL (0.2-0.9); Monocytes % 6.4 %; Neutrophils # 6.6 10^3/uL (1.8-7.7); Neutrophils % 70.6 %; Nucleated Red Blood Cells % 0 %; Platelet Count 543 10^3/cmm (130-400); Red Blood Count 3.19 10^6/uL (4.1-5.3); Red Cell Distribution Width 17.9 % (12.1-15.1); White Blood Count 9.3 10^3/uL (4.0-10.0)
[2019-11-21 05:49] LABS: Blood Urea Nitrogen 7 mg/dL (8-23); Calcium 8.6 mg/Dl (8.8-10.2); Carbon Dioxide 25 mmol/L (22-29); Chloride 99 mmol/L (98-107); Glucose 78 mg/dL (74-106); Sodium 133 mmol/L (136-145)
[2019-11-21] MEDS: piperacillin-tazobactam 3.375 GM in sodium chloride 0.9% (plus) 50 ML IV (06:39)
[2019-11-21] MEDS: pantoprazole DR 40 mg Tablet PO (09:24)
[2019-11-21] MEDS: HYDROcodone-acetaminophen 5-325 mg Tablet 1 TAB PO (09:24)
[2019-11-21] MEDS: risperiDONE 0.25 mg Tablet PO (09:24)
[2019-11-21] MEDS: ALPRAZolam 0.5 mg Tablet PO (10:58)
--- NOTE | 2019-11-21 11:14 | P.PN_ITS ---
Subjective Subjective: Interval history: Patient seen and examined, sitting up in bed, visibly quite anxious, requesting to return to the [facility] as he cannot seem to get comfortable. Also requesting Xanax which he takes as needed for anxiety. Has had 1150 mL urine output overnight. Morning labs reviewed. Blood pressure stable. Medications: Reviewed: Yes Medication Review Details: Active Medications Generic Name Dose Route Start Last Admin Trade Name Freq PRN Reason Stop Dose Admin Acetaminophen 650 mg 11/21/19 00:31 Tylenol PO QID PRN mild pain or feve r Hydrocodone Bitart /Acetaminophen 1 tab 11/20/19 13:43 11/21/19 09:24 Hermon 5-325 Mg PO 1 tab Q4H PRN Administration MODERATE PAIN Albuterol Sulfate 2.5 mg 11/21/19 04:00 Albuterol INHALATION Q6H.RESPIRATORY P RN SHORTNESS OF KATHRINE TH Alprazolam 0.5 mg 11/21/19 09:49 11/21/19 10:58 Xanax PO 0.5 mg TID PRN Administration ANXIETY Enoxaparin Sodium 40 mg 11/19/19 22:32 11/20/19 21:49 Lovenox SUBCUT 40 mg Q24H DAVID Administration Potassium Chloride /Sodium Chloride 20 meq in 1,000 m ls @ 100 mls/hr 11/19/19 19:30 11/21/19 01:20 Sodium Chlor 0.9 % + Kcl 20 Meq IV 100 mls/hr .Q10H DAVID Infusion Piperacillin Sod/T azobactam 50 mls @ 12.5 mls /hr 11/20/19 15:00 11/21/19 06:39 Sod 3.375 gm/ So dium Chloride IV 12.5 mls/hr Q8H DAVID Administration Protocol Levofloxacin/Dextr ose 750 mg in 150 mls @ 150 mls/hr 11/20/19 21:00 11/20/19 21:05 Levaquin-D5w IV Infused Q24H DAVID Infusion Protocol Vancomycin HCl 750 mg/ Sodium 250 mls @ 250 mls /hr 11/20/19 21:00 11/20/19 21:49 Chloride IV 250 mls/hr Q12H DAVID Administration Protocol Multivitamins/Mine rals 1 tab 11/21/19 09:00 11/21/19 09:24 Thera M Plus PO 1 tab DAILY DAVID Administration Ondansetron HCl 4 mg 11/21/19 00:31 Zofran PO Q6H PRN Nausea Pantoprazole Sodiu m 40 mg 11/20/19 09:00 11/21/19 09:24 Protonix PO 40 mg DAILY DAVID Administration Risperidone 0.25 mg 11/20/19 09:00 11/21/19 09:24 Risperdal PO 0.25 mg DAILY DAVID Administration Tramadol HCl 50 mg 11/20/19 13:43 11/20/19 14:09 Ultram PO 50 mg Q6H PRN Administration MILD PAIN propoxyphene Allergy (Verified 11/19/19 15:48) Unknown Vitals/I&O/Wt Last Vital Signs Temp 98.0 F 11/21/19 11:00 Pulse 84 11/21/19 11:00 Resp 20 H 11/21/19 11:00 BP 111/76 11/21/19 11:00 Pulse Ox 96 11/21/19 11:00 11/20/19 11/21/19 11/21/19 22:59 06:59 14:59 Intake Total 1963.333 / 4343.333 50 / 4393.333 240 / 240 Output Total 1050 / 1780 450 / 2230 Balance 913.333 / 2563.333 -400 / 2163.333 240 / 240 Weight last 48 hrs Weight 81.335 kg Weight 80.853 kg Weight 67.132 kg Physical Exam Const: COMMON NORMALS: oriented x3 and alert GENERAL APPEARANCE: cooperative, anxious (Visibly quite anxious) and frail appearing NUTRITIONAL APPEARANCE: thin ORIENTATION/CONSCIOUSNESS: Yes awake HENMT: COMMON NORMALS: normocephalic, head/scalp atraumatic and hearing grossly normal bilaterally HEAD & SCALP: normocephalic and atraumatic Eye: COMMON NORMALS: PERRL, EOMs intact bilaterally, conjunctivae normal and no scleral icterus CONJUNCTIVA: Yes conjunctivae normal PUPIL: Yes PERRL Resp: COMMON NORMALS: no retractions, no use of accessory muscles and clear to auscultation bilaterally EFFORT & INSPECTION: Yes tachypneic (Secondary to anxiety) AUSCULTATION: clear to auscultation bilaterally Cardio: COMMON NORMALS: regular rate, regular rhythm, S1 normal heart sound, S2 normal heart sound and no murmurs RATE: regular rate RHYTHM: regular rhythm HEART SOUNDS: S1 normal and S2 normal OTHER: Low normal blood pressure GI: COMMON NORMALS: normal to inspection, nondistended, normoactive bowel sounds INSPECTION: Yes other (scar from recent ventral hernia repair) PALPATION: Yes tender (Vague diffuse abdominal tenderness) Extremity: COMMON NORMALS: normal to inspection Neuro: COMMON NORMALS: oriented x3 SENSORIUM/ORIENTATION: Yes alert Psych: MOOD & AFFECT: Yes flat affect Skin: COMMON NORMALS: no rashes or lesions noted GENERAL SKIN EXAM: no rashes or lesions noted Data Micro: Micro: Microbiology 11/19/19 16:22 Blood Culture - Pr eliminary Blood NEGATIVE TO JAMEY E 11/19/19 16:31 Blood Culture - Pr eliminary Blood NEGATIVE TO JAMEY E A&P Assessment and plan (1) Sepsis: Sepsis as evidenced by hypotension, leukocytosis, lactic acidosis; now resolved as patient is normotensive, leukocytosis and lactic acidosis have both resolved -Suspected etiology is hospital-acquired pneumonia given continued evidence of bilateral pleural infiltrates; has history of loculated effusion that required chest tube placement and thoracentesis in October 2019 -Low normal blood pressure currently, this appears to be his baseline, pressor support not needed -Resolved leukocytosis; afebrile -Continue to monitor vital signs closely; currently stable -Supplemental oxygen as needed, is oxygen dependent at baseline -Continue empiric antibiotics; de-escalate today based on clinical improvement -blood cultures prelim negative Status: Acute Qualifiers: Sepsis acute organ dysfunction status: without acute organ dysfunction Sepsis type: sepsis due to unspecified organism Qualified Code(s): A41.9 - Sepsis, unspecified organism Code(s): A41.9 - Sepsis, unspecified organism (2) Hospital-acquired pneumonia: -Has history of recent prolonged and very complicated hospitalization including development of ARDS, loculated effusion requiring drainage and chest tube placement and removal, BiPAP support, ICU admission -Continued evidence of bilateral pleural infiltrates on imaging -Continue empiric antibiotics, close monitoring of respiratory status, supplemental oxygen as needed Status: Acute Code(s): J18.9 - Pneumonia, unspecified organism; Y95 - Nosocomial condition (3) Dehydration: -Fluid balance improved with IV fluid hydration, poor oral intake likely secondary to persistent abdominal pain -On gentle IV fluid hydration; encourage oral hydration which patient has been reluctant to do so far -[place] diet Status: Acute Code(s): E86.0 - Dehydration (4) Hyponatremia: -Has history of chronic hyponatremia with baseline sodium in the low 130s -Current sodium appears to be his baseline Status: Acute Code(s): E87.1 - Hypo-osmolality and hyponatremia (5) Gastric wall thickening: -Has known history of gastric wall thickening, seen on repeat imaging with radiologist reporting neoplasm versus hypertrophic gastritis -Had recent gastric biopsy done showing fungal overgrowth; suspicion for small B-cell lymphoma on review of biopsy results -has known hx of PUD Status: Acute Code(s): K31.89 - Other diseases of stomach and duodenum Additional A&P Information Additional A&P Information: -Chronic normocytic anemia; baseline Hg 9-10. Noted slight drop in hemoglobin, continue to watch H&H closely -Deconditioning and sarcopenia; had been at an LTAC in [place] and most recently has been at [facility]. Strict fall precautions; Assist with ambulation as needed -Chronic thrombocytosis; which is likely multifactorial given possibility of B- cell lymphoma, acute infection. Baseline platelet count 600s -Oxygen dependent COPD, 2 L baseline requirement -History of CAD status post RCA stenting -Chronic smoker -History of chronic combined systolic and diastolic CHF, no acute exacerbation. Echo (09/2019): EF=55%, G1DD, no RWMA, mild TR -hx of recent ventral hernia repair with mesh and wound dehiscence following laparotomy with lymph node biopsy -Depression, anxiety; restart low dose Xanax as needed -GI ppx with PPI -DVT ppx with Lovenox -Dispo: return to [facility] -Code status: FULL code Attestations Medical Necessity Statement*: Patient requires hospitalization for continued treatment of hospital-acquired pneumonia, switching from IV to oral antibiotics. Coding Level of Care Code Acute Journeyman Painter for Chg Fwd Exam Problem Focused Diagnoses Sepsis A41.9 Sepsis acute organ dysfunction status: without acute organ dysfunction Sepsis type: sepsis due to unspecified organism Hospital-acquired pneumonia J18.9; Y95 Dehydration E86.0 Hyponatremia E87.1 Gastric wall thickening K31.89
--- NOTE | 2019-11-21 15:30 | P.DS_ITS ---
Discharge Providers Date of Admission: 11/19/19 20:19 Date of Discharge: 11/21/19 Attending Provider at Admission: Ministerio Jewell MD Attending Provider at Discharge: Ayesha Norris MD Diagnoses at Discharge Discharge Diagnosis (1) Sepsis: Status: Acute Qualifiers: Sepsis type: sepsis due to unspecified organism Sepsis acute organ dysfunction status: without acute organ dysfunction Qualified Code(s): A41.9 - Sepsis, unspecified organism (2) Hospital-acquired pneumonia: Status: Acute (3) Dehydration: Status: Acute (4) Hyponatremia: Status: Acute (5) Gastric wall thickening: Status: Acute Reason for Visit Reason for Visit: Reason For Visit: POSS SEPSIS Hospital Course Hospital Course: Patient was recently discharged from our facility following a complicated and prolonged hospital course and is well-known to me from previous admission. He was admitted to ICU initially due to concern for sepsis related to hospital-acquired pneumonia has documented previously. He was started on broad-spectrum IV antibiotics and IV fluid hydration; blood pressure closely monitored. He did not require pressor support and blood pressure has remained in the low normal range which appears to be his new baseline. Leukocytosis has since resolved, he has been hemodynamically stable, afebrile, lactic acid has returned to normal. Overnight he was transferred to the medical surgical floor for continued care. He is at his baseline oxygen requirement. Blood cultures are prelim negative. Antibiotics were de-escalated following a clinical improvement. He will need to continue Levaquin to complete a 7-day course. Patient is very high risk for readmission particularly given his ongoing health issues. He is fairly insistent on returning to the nursing facility so will be discharged there with continued medication. He is to continue supplemental oxygen with current baseline of 2 L so this can be titrated as needed to maintain patient's oxygen saturation at or above 92%. There was a slight drop in his hemoglobin though not enough to warrant transfusion of blood products. Physical Exam Const: COMMON NORMALS: oriented x3 and alert GENERAL APPEARANCE: cooperative, anxious (Visibly quite anxious) and frail appearing NUTRITIONAL APPEARANCE: thin ORIENTATION/CONSCIOUSNESS: Yes awake HENMT: COMMON NORMALS: normocephalic, head/scalp atraumatic and hearing grossly normal bilaterally HEAD & SCALP: normocephalic and atraumatic Eye: COMMON NORMALS: PERRL, EOMs intact bilaterally, conjunctivae normal and no scleral icterus CONJUNCTIVA: Yes conjunctivae normal PUPIL: Yes PERRL Resp: COMMON NORMALS: no retractions, no use of accessory muscles and clear to auscultation bilaterally EFFORT & INSPECTION: Yes tachypneic (Secondary to anxiety) AUSCULTATION: clear to auscultation bilaterally Cardio: COMMON NORMALS: regular rate, regular rhythm, S1 normal heart sound, S2 normal heart sound and no murmurs RATE: regular rate RHYTHM: regular rhythm HEART SOUNDS: S1 normal and S2 normal OTHER: Low normal blood pressure GI: COMMON NORMALS: normal to inspection, nondistended, normoactive bowel sounds INSPECTION: Yes other (scar from recent ventral hernia repair) PALPATION: Yes tender (Vague diffuse abdominal tenderness) Extremity: COMMON NORMALS: normal to inspection Neuro: COMMON NORMALS: oriented x3 SENSORIUM/ORIENTATION: Yes alert Psych: MOOD & AFFECT: Yes flat affect Skin: COMMON NORMALS: no rashes or lesions noted GENERAL SKIN EXAM: no rashes or lesions noted Discharge Data Data Completed and Pending: Completed Studies During Hospitalization Category Date Time Status CT abdomen pelvis w con* [id number] Urge nt Cat Scan 11/19/19 17:36 Completed XR chest 1V ana ble [id number] Stat Exams 11/19/19 15:53 Completed Pending at discharge Category Date Time Status Arterial Blood Ga s W/O Coox AM LABS Lab 11/20/19 06:05 Results Blood Culture Sta t Lab 11/19/19 16:31 Results Complete Blood Co unt w/Auto AM LABS Lab 11/22/19 04:00 Ordered Labs from last 24 hours 11/21/19 11/21/19 04:55 04:55 WBC 9.3 RBC 3.19 L Hgb 8.3 L Hct 27.2 L MCV 85.3 MCH 26.0 L MCHC 30.5 RDW 17.9 H Plt Count 543 H MPV 9.4 Neut % (Auto) 70.6 Lymph % (Auto) 21.7 Angelina % (Auto) 6.4 Eos % (Auto) 0.4 Baso % (Auto) 0.5 Neut # (Auto) 6.6 Lymph # (Auto) 2.0 Angelina # (Auto) 0.6 Eos # (Auto) 0.0 Baso # (Auto) 0.1 Nucleated RBC % (a uto) 0 Nucleated RBCs # 0.0 Sodium 133 L Potassium 4.0 Chloride 99 Carbon Dioxide 25 Anion Gap 13.0 BUN 7 L Creatinine 0.9 GFR Calculation 85.0 L Glucose 78 Calcium 8.6 L Vitals: Last Vital Signs Temp 98.0 F 11/21/19 11:00 Pulse 84 11/21/19 11:00 Resp 20 H 11/21/19 11:00 BP 111/76 11/21/19 11:00 Pulse Ox 96 11/21/19 11:00 Discharge Plan Discharge Patient Disposition: Xfer SNF Condition: Stable Prescriptions: New levofloxacin [Levaquin] 750 mg tablet 750 mg PO DAILY 7 Days Qty: 7 RF: 0 Continued pantoprazole 40 mg Tablet,Delayed Release (Dr/Ec) 40 mg PO DAILY RF: 0 mirtazapine 15 mg Tablet 15 mg PO BEDTIME RF: 0 risperidone 0.5 mg Tablet 0.5 mg PO DAILY RF: 0 multivitamin Tablet 1 tab PO DAILY RF: 0 albuterol sulfate 2.5 mg /3 mL (0.083 %) Solution For Nebulization 2.5 mg INHALATION Q6H PRN (Reason: Shortness Of Breath) RF: 0 Senna Plus 8.6-50 mg Tablet 1 tab-cap PO BID RF: 0 temazepam 15 mg Capsule 15 mg PO BEDTIME RF: 0 Saline Mist PRN (Reason: Congestion) RF: 0 Tylenol 325 mg Tablet 650 mg PO QID PRN (Reason: pain) RF: 0 Miralax 17 gram Powder In Packet PRN (Reason: Constipation) RF: 0 Zofran 4 mg Tablet 4 mg PO Q6H PRN (Reason: Nausea) RF: 0 metoprolol tartrate 25 mg Tablet BID RF: 0 Dulcolax Stool Softener (dss) 10 mg [place] PRN (Reason: Constipation) RF: 0 Plavix 75 mg PO DAILY RF: 0 ProAir HFA 90 mcg TID PRN (Reason: Wheezing) RF: 0 oxycodone 5 mg Tablet PO QID PRN (Reason: Pain) RF: 0 Fleet Enema 19-7 gram/118 mL Enema 118 ml [place] PRN PRN (Reason: Constipation) RF: 0 Discharge Orders: Discharge Order (Routine); Ordered 11/21/19 Ordered By: Ayesha Norris Referrals: Martin Navarro, TELEVISION MAINTENANCE MAN [Family Provider] - Discharge Diet: Advance as tolerated Discharge Activity: continue fall precautions Activity Restrictions/Additional Instructions: Please continue to use supplemental oxygen, current baseline is 2 L but can be titrated as needed to maintain saturation at or above 92 Discharge Attestations Time Spent in Discharge Care*: greater than 30 min Specific Discharge Activities: Specific discharge activities: educating patient, discussing with rn case manager hospice/social workers/dc planners and evaluating patient/reviewing data Quality Metrics Clinical Quality Measures During this hospital stay, did patient experience: None Coding Level of Care Code Acute Cellular Tower Climber for Chg Fwd Diagnoses Sepsis A41.9 Sepsis type: sepsis due to unspecified organism Sepsis acute organ dysfunction status: without acute organ dysfunction Hospital-acquired pneumonia J18.9; Y95 Dehydration E86.0 Hyponatremia E87.1 Gastric wall thickening K31.89
[2019-11-22 09:26] LABS: Oxygen Device NC
== END 2019-11-21 16:49 | disposition skilled nursing facility (03) | DRG 871 ==
LOC: ER 21:17 → ICU 21:18 → MEDSURG 11-20 23:50
PROVIDERS: Emergency Medicine; Admitting Provider Internal Medicine; Emergency Provider Emergency Medicine; Family Provider Nurse Practitioner Family; Visit Provider Family Medicine
DX: A41.9 Sepsis, unspecified organism (principal); R65.21 Severe sepsis with septic shock; J18.9 Pneumonia, unspecified organism; E46 Unspecified protein-calorie malnutrition; E87.1 Hypo-osmolality and hyponatremia; Y95 Nosocomial condition; M62.84 Sarcopenia; E86.0 Dehydration; E87.6 Hypokalemia; Z87.11 Personal history of peptic ulcer disease; N18.2 Chronic kidney disease, stage 2 (mild); J44.9 Chronic obstructive pulmonary disease, unspecified; F32.9 Major depressive disorder, single episode, unspecified; I25.2 Old myocardial infarction; D64.9 Anemia, unspecified; I12.9 Hypertensive chronic kidney disease with stage 1 through stage 4 chronic kidney disease, or unspecified chronic kidney disease; Z95.5 Presence of coronary angioplasty implant and graft; F17.210 Nicotine dependence, cigarettes, uncomplicated
CPT/HCPCS: 36415; 71045; 74177; 80048; 80053; 81003; 82803; 83605; 84295; 85025; 87040; 93005; 96360; 96365; 96372; 96374; 99283; J1650; J1956; J2270; J2543; J7050; Q9967

== ENCOUNTER 2019-12-10 06:25 | Emergency (ER) | payer MEDICARE, SELFPAY ==
[2019-12-10 06:25] VITALS: BP 92/60; PULSE 103; RESP 30; TEMP 36.9; O2SAT 97; BMI 21.2
--- NOTE | 2019-12-10 06:25 | XRR_ITS ---
PROCEDURE INFORMATION: Exam: XR Chest, 1 View Exam date and time: 12/10/2019 6:43 AM Age: 64 years old Clinical indication: Cough and shortness of breath TECHNIQUE: Imaging protocol: XR of the chest Views: 1 view. COMPARISON: XR CHEST 11/19/2019 4:22 PM FINDINGS: Lungs: There is bibasilar inferomedial airspace disease with lung consolidation and air bronchogram formation. Some bilateral infrahilar involvement as well. Overall not significantly changed in the interval. Pleural space: There are bilateral small to moderate-sized pleural effusions, not significantly changed in the interval. Heart/Mediastinum: The heart is partially silhouetted out, but does not appear to be enlarged. Bones/joints: No acute osseous abnormality. XR/XR chest 1V portable [id number] IMPRESSION: No significant change in bilateral pneumonia and pleural effusions when compared to XR CHEST 11/19/2019 4:22 PM.
[2019-12-10 06:32] LABS: ABG PCO2 42.5 mmHg (35-45); ABG PH Result 7.47 (7.35-7.45); Arterial Blood Gas Hematocrit 29.1 % (42-52); Base Excess ABG 6.3 mmol/L (-2.0-2.0); Blood Gas Allen Test Pos; Blood Gas Sample Site Radial, left; Blood Gas Sample Type Arterial; HCO3 ABG 30.6 mmol/L (22-26); Oxygen Device NC; PO2 ABG 66.4 mmHg (80.0-100.0)
--- NOTE | 2019-12-10 06:32 | W.ED.SOB ---
HPI - SOB/Dyspnea General: Chief Complaint: Shortness of Breath/Dyspnea Stated Complaint: RESPIRATORY DISTRESS Time Seen by Provider: 12/10/19 06:25 Source: patient and EMS Mode of arrival: EMS Limitations: no limitations History of Present Illness: HPI Narrative: Manolo is a very nice 64-year-old male who comes in with a complaint of shortness of breath and cough. He states he is been out of the senior care for four days and has had a gradual decline with his breathing every day since. His cough is nonproductive and he denies any fever. He denies any chest pain only shortness of breath worse with exertion. Again he denies fever or chest pain. He is unaware of anything that makes his symptoms better or worse. He denies any orthopnea or paroxysmal nocturnal dyspnea. He states he is turned his oxygen up but otherwise has no complaints. The patient has audible wheezing upon entrance to the room but shows no sign of respiratory distress. EMS reports that he received an albuterol treatment and 125 mg of Solu-Medrol in route and is markedly better. Associated symptoms: Deny abdominal pain, chest congestion, chest pain, diaphoresis, dizziness, extremity pain, fever(s), hemoptysis, nausea, orthopnea, palpitations, polydipsia, syncope or vomiting Review of Systems General: Reports: other (negative unless marked) Const: Denies: fever, chills, body aches, fatigue, malaise or diaphoresis Eyes: Denies: change in vision or blurry vision ENMT: Denies: throat pain, painful swallowing, hoarseness, ear pain, ear discharge, Change in hearing or nasal discharge Card: Denies: chest pain, palpitations, irregular heart rhythm, syncope, pre-syncope, shortness of breath on exertion or shortness of breath when lying down Resp: Reports: shortness of breath, non-productive cough and wheezing; Denies: productive cough, coughing up blood or chest congestion GI: Denies: abdominal pain, nausea, vomiting, vomiting blood, coffee grounds in vomit, diarrhea, constipation, cramping, blood in stool or black tarry stool : Denies: flank pain, difficulty urinating, painful urination, urinary frequency, urinary urgency, decreased urine ouput, urinary incontinence or blood in urine Musc: Denies: neck pain, back pain, extremity pain, extremity swelling, joint pain, joint swelling, joint warmth or joint stiffness Skin/Breast: Denies: rash, skin tenderness or yellow skin Neuro: Denies: headache, numbness in extremities, weakness in extremities, changes in sensation, lack of coordination, difficulty walking, dizziness, vertigo or confusion Endo: Denies: excessive thirst, tired all the time, cold intolerance, excessive sweating, flushing or hot flashes Jeffery/Lymph: Denies: easy bruising, easy bleeding, petechiae or enlarged lymph nodes All/Imm: Denies: hives, throat swelling, tongue swelling, facial swelling or acute wheezing PFSH ED PFSH: Statuses (acute, chronic, etc) shown below reflect problem list status as previously entered and may not be historically accurate Medical History ARDS (adult respiratory distress syndrome) (Acute) Chronic kidney disease, stage II (mild) (Acute) COPD (chronic obstructive pulmonary disease) (Acute) Deconditioned low back (Acute) Depression (Acute) Gastric perforation (Acute) History of coronary angiogram (Acute) Hypertension (Acute) Loculated pleural effusion (Acute) Malnourished (Acute) Myocardial infarction (Acute) Normocytic anemia (Acute) Peptic ulcer disease (Acute) Ventral hernia (Acute) Surgical History H/O chest tube placement (Acute) S/P right coronary artery (RCA) stent placement (Acute) Family History Father Liver cirrhosis Social History Smoking and tobacco status: current some day smoker cigarettes Alcohol intake: never Lives independently: No Housing: Assisted Living Facility Physical Exam Const: COMMON NORMALS: no apparent distress, oriented x3, no limitations, healthy appearing and well nourished EXAM LIMITATIONS: no altered mental status GENERAL APPEARANCE: cooperative, well kempt and well developed ORIENTATION/CONSCIOUSNESS: Yes awake HENMT: COMMON NORMALS: normocephalic, head/scalp atraumatic, hearing grossly normal bilaterally, external ears normal, EAC's normal, external nose normal and moist oral mucous membranes HEAD & SCALP: normal to inspection, normocephalic and atraumatic FACE & SINUS: normal facial exam and face symmetric NOSE: external nose normal and nares normal EXTERNAL EAR: Yes external ears normal EXTERNAL AUDITORY CANAL: EAC's normal MOUTH: oral and palatal mucosa normal and tongue normal Eye: COMMON NORMALS: PERRL, EOMs intact bilaterally, conjunctivae normal and no scleral icterus GENERAL EYE: normal appearance of both eyes and normal light reflex CONJUNCTIVA: Yes conjunctivae normal SCLERA: sclerae normal CORNEA: Yes corneas normal PUPIL: Yes PERRL DIRECT OPHTHALMOSCOPY: Yes normal light reflex Neck/C-Spine: COMMON NORMALS: full ROM, no lymphadenopathy, supple, no meningeal signs and no JVD GENERAL: Yes normal visual inspection and Yes trachea midline CERVICAL SPINE: Yes cervical ROM normal Chest: COMMONS NORMALS: inspection of chest normal and palpation of chest normal Resp: COMMON NORMALS: no use of accessory muscles EFFORT & INSPECTION: Yes able to speak in complete sentences and Yes audible wheezes AUSCULTATION: no rales, rhonchi, wheezes, breath sounds present and lung sounds not diminished Cardio: COMMON NORMALS: no JVD, regular rate, regular rhythm, S1 normal heart sound, S2 normal heart sound, no gallops, no clicks, no murmurs and no rub JUGULAR VENOUS DISTENTION: no JVD RATE: regular rate RHYTHM: regular rhythm HEART SOUNDS: S1 normal and S2 normal GI: COMMON NORMALS: soft to palpation, non-tender, no hepatosplenomegaly and no masses INSPECTION: Yes normal to inspection PALPATION: Yes soft and Yes no hepatosplenomegaly : COMMON NORMALS: Yes no CVA tenderness BLADDER/KIDNEY EXAM: Yes no CVA tenderness Back/Pelvis: COMMON NORMALS: no CVA tenderness, thoracic and lumbar spine normal to inspection, no thoracic nor lumbar tenderness and thoraco-lumbar ROM normal Extremity: COMMON NORMALS: normal to inspection, full ROM, normal capillary refill, no joint enlargement, no clubbing, cyanosis or edema and no calf tenderness Neuro: COMMON NORMALS: oriented x3, CN's II-XII intact bilaterally, moves all extremities, no focal motor deficits and no sensory deficits noted MENINGEAL SIGNS: Yes no meningeal signs Psych: COMMON NORMALS: mental status grossly normal, thought process normal, cooperative, affect normal, speech normal and activity/motor behavior normal APPEARANCE: Yes well kempt SPEECH: Yes normal speech THOUGHT PROCESS: normal thought process Skin: COMMON NORMALS: no rashes or lesions noted, skin turgor normal, no jaundice, no petechiae and no mottling GENERAL SKIN EXAM: no rashes or lesions noted and turgor normal Course Vital Signs: Vital signs: Vital Signs Temperature 98.4 F 12/10/19 06:25 Pulse Rate 70 12/10/19 09:50 Respiratory Rate 14 12/10/19 09:50 Blood Pressure 95/70 12/10/19 09:50 Pulse Oximetry 97 12/10/19 09:50 MDM - SOB/Dyspnea MDM Narrative: Medical decision making narrative: Arrival -Manolo is a pleasant 64-year-old male recently discharged from the senior care after he is been there for pneumonia. He complains of increasing shortness of breath since leaving. He has a nonproductive cough. His vital signs are stable. He denies any chest pain. Differential is long includes acute coronary syndrome, congestive heart failure, pneumonia, or COPD exacerbation, pneumothorax among many others. I will direct my therapy toward stabilization of his COPD although he does not appear unstable we will treat for this primarily and evaluate for this and many other causes. Discharge -the patient is markedly better at this time. He is refusing to stay in the hospital for further evaluation and care. He does not want to stay in the ER for further heart evaluation. His chest x-ray appears improved from his previous and he shows no sign of instability. There is no sign of sepsis. I think he has a mild COPD exacerbation going on and will respond well to steroids and antibiotics. The patient is adamant he wants to leave and we are working to arrange that. His evaluation up to this point rules out an STEMI, pneumonia and pneumothorax. Clinically I believe the most likely thing is COPD exacerbation at this time. He agrees to return though should his symptoms change or worsen. We did review at length the signs and symptoms for which he needs to return and he said he agreed to do this he denied having any other questions or concerns. Lab Data: Labs: Lab Results 12/10/19 12/10/19 12/10/19 Range/Units 05:30 05:30 05:30 WBC 9.0 (4.0-10.0) 10^3/ uL RBC 3.89 L (4.1-5.3) 10^6/u L Hgb 10.3 L (11.7-16.6) g/dL Hct 32.5 L (42.0-52.0) % MCV 83.5 (80-94) fL MCH 26.5 L (28.0-34.0) pg MCHC 31.7 (30.0-36.0) g/dL RDW 18.6 H (12.1-15.1) % Plt Count 566 H (130-400) 10^3/c mm MPV 9.6 (7.4-10.4) fL Neut % (Auto) 59.4 % Lymph % (Auto) 29.2 % [place] % (Auto) 10.6 % Eos % (Auto) 0.2 % Baso % (Auto) 0.4 % Neut # (Auto) 5.3 (1.8-7.7) 10^3/u L Lymph # (Auto) 2.6 (0.8-4.8) 10^3/u L [place] # (Auto) 1.0 H (0.2-0.9) 10^3/u L Eos # (Auto) 0.0 (0.0-0.8) 10^3/u L Baso # (Auto) 0.0 (0.0-0.1) 10^3/u L Nucleated RBC % (a uto) 0 % Nucleated RBCs # 0.0 /100WBC PT 16.80 H (10.5-13.3) SECO NDS INR 1.31 H (0.8-1.2) Specimen Type Sample Site ABG pH (7.35-7.45) ABG pCO2 (35-45) mmHg ABG pO2 (80.0-100.0) mmH g ABG HCO3 (22-26) mmol/L ABG Base Excess (-2.0-2.0) mmol/ L Iron Test Hematocrit (42-52) % O2 Delivery Device O2 Liters/Min % Other Sales Support Worker ID Sodium 134 L (136-145) mmol/L Potassium 4.0 (3.5-5.1) mmol/L Chloride 93 L (98-107) mmol/L Carbon Dioxide 28 (22-29) mmol/L Anion Gap 17.0 (5-19) BUN 4 L (8-23) mg/dL Creatinine 0.8 (0.7-1.2) mg/dL GFR Calculation 97.3 (90-130) mL/min Glucose 90 (74-106) mg/dL Lactic Acid (0.5-2.2) mmol/L Calcium 8.9 (8.5-10.5) mg/dL Magnesium 1.7 (1.7-2.3) mg/dL Total Bilirubin 0.3 (0.15-1.2) mg/dL AST 27 (0-40) U/L ALT 13 (0-41) U/L Alkaline Phosphata se 129 (40-130) IU/L Troponin T Baselin e (0-15) ng/mL NT-Pro-B Natriuret Pep 1540 H (0-125) pg/mL Total Protein 7.5 (6.6-8.7) g/dL Albumin 2.0 L (3.5-5.2) g/dL Globulin 5.5 H (1.3-4.6) g/dL Urine Color (Yellow) Urine Appearance (CLEAR) Urine pH (5-7) Ur Specific Gravit y (1.005-1.030) Urine Protein (Negative) Urine Glucose (UA) (Normal) Urine Ketones (Negative) Urine Occult Blood (Negative) Urine Nitrate (Negative) Urine Bilirubin (NEGATIVE) Urine Urobilinogen (Negative) mg/dL Ur Leukocyte Cassi ase (Negative) Urine RBC (0-2) /hpf Urine WBC (0-5) /hpf Ur Squamous Epith Cells (0-5) Urine Bacteria (NONE) Influenza Type A A g (Negative) POC Influenza B Ag (Negative) 12/10/19 12/10/19 12/10/19 Range/Units 06:25 06:37 07:16 WBC (4.0-10.0) 10^3/ uL RBC (4.1-5.3) 10^6/u L Hgb (11.7-16.6) g/dL Hct (42.0-52.0) % MCV (80-94) fL MCH (28.0-34.0) pg MCHC (30.0-36.0) g/dL RDW (12.1-15.1) % Plt Count (130-400) 10^3/c mm MPV (7.4-10.4) fL Neut % (Auto) % Lymph % (Auto) % [place] % (Auto) % Eos % (Auto) % Baso % (Auto) % Neut # (Auto) (1.8-7.7) 10^3/u L Lymph # (Auto) (0.8-4.8) 10^3/u L [place] # (Auto) (0.2-0.9) 10^3/u L Eos # (Auto) (0.0-0.8) 10^3/u L Baso # (Auto) (0.0-0.1) 10^3/u L Nucleated RBC % (a uto) % Nucleated RBCs # /100WBC PT (10.5-13.3) SECO NDS INR (0.8-1.2) Specimen Type Arterial Sample Site Radial, left ABG pH 7.47 H (7.35-7.45) ABG pCO2 42.5 (35-45) mmHg ABG pO2 66.4 L (80.0-100.0) mmH g ABG HCO3 30.6 H (22-26) mmol/L ABG Base Excess 6.3 H (-2.0-2.0) mmol/ L Iron Test Pos Hematocrit 29.1 L (42-52) % O2 Delivery Device Nc O2 Liters/Min 4.0 % Other Sales Support Worker ID [email or web address] Sodium (136-145) mmol/L Potassium (3.5-5.1) mmol/L Chloride (98-107) mmol/L Carbon Dioxide (22-29) mmol/L Anion Gap (5-19) BUN (8-23) mg/dL Creatinine (0.7-1.2) mg/dL GFR Calculation (90-130) mL/min Glucose (74-106) mg/dL Lactic Acid 1.2 (0.5-2.2) mmol/L Calcium (8.5-10.5) mg/dL Magnesium (1.7-2.3) mg/dL Total Bilirubin (0.15-1.2) mg/dL AST (0-40) U/L ALT (0-41) U/L Alkaline Phosphata se (40-130) IU/L Troponin T Baselin e (0-15) ng/mL NT-Pro-B Natriuret Pep (0-125) pg/mL Total Protein (6.6-8.7) g/dL Albumin (3.5-5.2) g/dL Globulin (1.3-4.6) g/dL Urine Color (Yellow) Urine Appearance (CLEAR) Urine pH (5-7) Ur Specific Gravit y (1.005-1.030) Urine Protein (Negative) Urine Glucose (UA) (Normal) Urine Ketones (Negative) Urine Occult Blood (Negative) Urine Nitrate (Negative) Urine Bilirubin (NEGATIVE) Urine Urobilinogen (Negative) mg/dL Ur Leukocyte Cassi ase (Negative) Urine RBC (0-2) /hpf Urine WBC (0-5) /hpf Ur Squamous Epith Cells (0-5) Urine Bacteria (NONE) Influenza Type A A g Negative (Negative) POC Influenza B Ag Negative (Negative) 12/10/19 12/10/19 Range/Units 07:36 08:17 WBC (4.0-10.0) 10^3/ uL RBC (4.1-5.3) 10^6/u L Hgb (11.7-16.6) g/dL Hct (42.0-52.0) % MCV (80-94) fL MCH (28.0-34.0) pg MCHC (30.0-36.0) g/dL RDW (12.1-15.1) % Plt Count (130-400) 10^3/c mm MPV (7.4-10.4) fL Neut % (Auto) % Lymph % (Auto) % [place] % (Auto) % Eos % (Auto) % Baso % (Auto) % Neut # (Auto) (1.8-7.7) 10^3/u L Lymph # (Auto) (0.8-4.8) 10^3/u L [place] # (Auto) (0.2-0.9) 10^3/u L Eos # (Auto) (0.0-0.8) 10^3/u L Baso # (Auto) (0.0-0.1) 10^3/u L Nucleated RBC % (a uto) % Nucleated RBCs # /100WBC PT (10.5-13.3) SECO NDS INR (0.8-1.2) Specimen Type Sample Site ABG pH (7.35-7.45) ABG pCO2 (35-45) mmHg ABG pO2 (80.0-100.0) mmH g ABG HCO3 (22-26) mmol/L ABG Base Excess (-2.0-2.0) mmol/ L Iron Test Hematocrit (42-52) % O2 Delivery Device O2 Liters/Min % Other Sales Support Worker ID Sodium (136-145) mmol/L Potassium (3.5-5.1) mmol/L Chloride (98-107) mmol/L Carbon Dioxide (22-29) mmol/L Anion Gap (5-19) BUN (8-23) mg/dL Creatinine (0.7-1.2) mg/dL GFR Calculation (90-130) mL/min Glucose (74-106) mg/dL Lactic Acid (0.5-2.2) mmol/L Calcium (8.5-10.5) mg/dL Magnesium (1.7-2.3) mg/dL Total Bilirubin (0.15-1.2) mg/dL AST (0-40) U/L ALT (0-41) U/L Alkaline Phosphata se (40-130) IU/L Troponin T Baselin e 27 H (0-15) ng/mL NT-Pro-B Natriuret Pep (0-125) pg/mL Total Protein (6.6-8.7) g/dL Albumin (3.5-5.2) g/dL Globulin (1.3-4.6) g/dL Urine Color Yellow (Yellow) Urine Appearance Clear (CLEAR) Urine pH 7 (5-7) Ur Specific Gravit y 1.010 (1.005-1.030) Urine Protein Neg (Negative) Urine Glucose (UA) Norm (Normal) Urine Ketones Negative (Negative) Urine Occult Blood Neg (Negative) Urine Nitrate Negative (Negative) Urine Bilirubin Neg (NEGATIVE) Urine Urobilinogen Norm (Negative) mg/dL Ur Leukocyte Cassi ase Negative (Negative) Urine RBC None (0-2) /hpf Urine WBC None (0-5) /hpf Ur Squamous Epith Cells None (0-5) Urine Bacteria None (NONE) Influenza Type A A g (Negative) POC Influenza B Ag (Negative) Imaging Data^: CXR: My impression: No new acute cardiopulmonary findings. Stable bilateral lower infiltrates. No sign of new infiltrate. No pneumothorax. No sign of congestive heart failure. Bilateral pleural effusion stable EKG Data^: EKG 1: Attestation: I personally reviewed and interpreted this EKG as follows: EKG Interpretation Date: 12/10/19 EKG interpretation time: 06:36 Interpretation: Normal sinus rhythm at 88 beats a minute, normal KS interval, Q waves inferiorly, nonspecific ST-T wave changes otherwise, artifact present. Discharge Plan Discharge Patient Disposition: Home, Self-Care Clinical Impression: Acute exacerbation of chronic obstructive airways disease Condition: Stable Prescriptions: New prednisone 10 mg tablets,dose pack See Rx Instructions .ROUTE .COMPLEX Qty: 21 RF: 0 doxycycline hyclate 100 mg tablet 100 mg PO BID 10 Days Qty: 20 RF: 0 No Action pantoprazole 40 mg Tablet,Delayed Release (Dr/Ec) 40 mg PO DAILY RF: 0 mirtazapine 15 mg Tablet 15 mg PO BEDTIME RF: 0 risperidone 0.5 mg Tablet 0.5 mg PO DAILY RF: 0 multivitamin Tablet 1 tab PO DAILY RF: 0 albuterol sulfate 2.5 mg /3 mL (0.083 %) Solution For Nebulization 2.5 mg INHALATION Q6H PRN (Reason: Shortness Of Breath) RF: 0 Senna Plus 8.6-50 mg Tablet 1 tab-cap PO BID RF: 0 temazepam 15 mg Capsule 15 mg PO BEDTIME RF: 0 Saline Mist PRN (Reason: Congestion) RF: 0 Tylenol 325 mg Tablet 650 mg PO QID PRN (Reason: pain) RF: 0 Miralax 17 gram Powder In Packet PRN (Reason: Constipation) RF: 0 Zofran 4 mg Tablet 4 mg PO Q6H PRN (Reason: Nausea) RF: 0 metoprolol tartrate 25 mg Tablet BID RF: 0 Dulcolax Stool Softener (dss) 10 mg KS PRN (Reason: Constipation) RF: 0 Plavix 75 mg PO DAILY RF: 0 ProAir HFA 90 mcg TID PRN (Reason: Wheezing) RF: 0 oxycodone 5 mg Tablet PO QID PRN (Reason: Pain) RF: 0 Fleet Enema 19-7 gram/118 mL Enema 118 ml KS PRN PRN (Reason: Constipation) RF: 0 Discharge Orders: Discharge Order (Routine); Ordered 12/10/19 Ordered By: Elizabeth Guerrero Referrals: Martin Navarro, [facility] [Family Provider] - Discharge Diet: Advance as tolerated Discharge Activity: Increase activity as tolerated Patient Instructions: Chronic Obstructive Pulmonary Disease (ED) Activity Restrictions/Additional Instructions: Please return to the ER immediately for any of the signs or symptoms listed on your discharge instruction sheets, worsening/changing of your symptoms, you are not getting better as quickly as expected, or for ANY other cause or concerns. You have been offered further evaluation and care here but you have declined. If you develop chest pain, your breathing worsens or you have any other new symptoms please return to the ER immediately for recheck. Discharge Date/Time: 12/10/19 09:52 Coding Level of Care Code ED Egg Pasteurizer for Chg Fwd Exam Problem Focused
[2019-12-10 06:34] VITALS: PULSE 86; RESP 24; O2SAT 96
[2019-12-10] MEDS: ipratropium-albuterol 3 mL Neb 9 ML INHALATION (06:34)
--- NOTE | 2019-12-10 06:38 | PC.NURSE ---
Performed EKG at 0636 and shown to ER doctor.
[2019-12-10 06:49] VITALS: PULSE 93
[2019-12-10 06:50] LABS: Basophils % 0.4 %; Eosinophils % 0.2 %; Hematocrit 32.5 % (42.0-52.0); Hemoglobin 10.3 g/dL (11.7-16.6); Lymphocytes # 2.6 10^3/uL (0.8-4.8); Lymphocytes % 29.2 %; Mean Corpuscular HGB Conc 31.7 g/dL (30.0-36.0); Mean Corpuscular Hemoglobin 26.5 pg (28.0-34.0); Mean Corpuscular Volume 83.5 fL (80-94); Mean Platelet Volume 9.6 fL (7.4-10.4); Monocytes % 10.6 %; Neutrophils # 5.3 10^3/uL (1.8-7.7); Neutrophils % 59.4 %; Nucleated Red Blood Cells % 0 %; Platelet Count 566 10^3/cmm (130-400); Red Blood Count 3.89 10^6/uL (4.1-5.3); Red Cell Distribution Width 18.6 % (12.1-15.1)
[2019-12-10 07:01] LABS: INR 1.31 (0.8-1.2)
[2019-12-10 07:10] LABS: Influenza A by IFA Negative (Negative); Influenza B by IFA Negative (Negative)
[2019-12-10 07:20] LABS: Slide Review Slide Review Perform
[2019-12-10 07:22] LABS: Alanine Aminotransferase 13 U/L (0-41); Alkaline Phosphatase 129 IU/L (40-130); Blood Urea Nitrogen 4 mg/dL (8-23); Calcium 8.9 mg/dL (8.5-10.5); Carbon Dioxide 28 mmol/L (22-29); Chloride 93 mmol/L (98-107); Globulin 5.5 g/dL (1.3-4.6); Glomerular Filtration Rate 97.3 mL/min (90-130); Glucose 90 mg/dL (74-106); Magnesium 1.7 mg/dL (1.7-2.3); NT Pro B Type Natriuretic Pept 1540 pg/mL (0-125); Sodium 134 mmol/L (136-145); Total Bilirubin 0.3 mg/dL (0.15-1.2); Total Protein 7.5 g/dL (6.6-8.7)
[2019-12-10 07:23] LABS: Aspartate Amino Transferase 27 U/L (0-40)
--- NOTE | 2019-12-10 07:30 | ECG_ITS ---
Measurements Intervals [place] Rate: 88 P: 43 LA: 146 QRS: 97 QRSD: 102 T: -40 QT: 384 QTc: 466 SINUS RHYTHM INDETERMINATE AXIS INFERIOR MYOCARDIAL INFARCTION , OF INDETERMINATE AGE [40+ ms Q WAVE AND/OR ST/T ABNORMALITY IN II/aVF] MODERATE T-WAVE ABNORMALITY, CONSIDER LATERAL ISCHEMIA [-0.1+ mV T WAVE IN I/aVL/V5/V6] Compared to ECG 11/19/2019 16:05:08 T-wave abnormality now present Possible ischemia now present Myocardial infarct finding still present Electronically Signed On 12-10-2019 18:53:26 STATIC BALANCER by Ministerio White M.D. [email or web address]
--- NOTE | 2019-12-10 07:30 | PC.NURSE ---
Patient attempting to collect urine.
[2019-12-10 07:40] LABS: Lactic Sepsis W/Reflex 1.2 mmol/L (0.5-2.2)
[2019-12-10 07:55] LABS: Bilirubin Urine Neg (NEGATIVE); Blood Urine Neg (Negative); Glucose Urine UA Norm (Normal); Ketones Urine Negative (Negative); Leukocyte Esterase Urine Negative (Negative); Nitrate Urine Negative (Negative); Protein Urine Neg (Negative); Urine Appearance Clear (CLEAR); Urine Color Yellow (Yellow); Urobilinogen Urine Norm (Negative); pH Urine 7 (5-7)
[2019-12-10 08:00] LABS: Add Urine Culture? No
[2019-12-10] MEDS: ondansetron 2 mg/ML SDV 2 mL 4 MG IVP (08:29)
[2019-12-10] MEDS: predniSONE 20 mg Tablet 60 MG PO (08:29)
[2019-12-10] MEDS: doxycycline 100 mg Tablet 200 MG PO (08:30)
[2019-12-10 08:42] LABS: Troponin(5th) Baseline 27 ng/mL (0-15)
[2019-12-10 09:50] VITALS: BP 95/70; PULSE 70; RESP 14; O2SAT 97
== END 2019-12-10 09:52 | disposition home or self-care (01) ==
PROVIDERS: Emergency Provider Emergency Medicine; Family Provider Nurse Practitioner Family
DX: J44.1 Chronic obstructive pulmonary disease with (acute) exacerbation (principal); Z79.02 Long term (current) use of antithrombotics/antiplatelets; I12.9 Hypertensive chronic kidney disease with stage 1 through stage 4 chronic kidney disease, or unspecified chronic kidney disease; N18.2 Chronic kidney disease, stage 2 (mild); I25.2 Old myocardial infarction; F17.210 Nicotine dependence, cigarettes, uncomplicated
CPT/HCPCS: 36415; 36600; 71045; 80053; 81001; 82803; 83605; 83735; 83880; 84484; 85025; 85610; 87040; 87804; 93005; 94640; 96374; 99281; J2405; J7512